=== PATIENT | female | born 1980 | race Asian ===

== ENCOUNTER 2018-09-16 10:35 | Outpatient (CLI) | payer BC | END 2018-09-16 23:59 | disposition home or self-care (01) | LOC: STAR 10:35 | PROVIDERS: ATTEND Obstetrics & Gynecology | DX: Z02.9 Encounter for administrative examinations, unspecified (principal) ==

== ENCOUNTER 2018-09-23 05:38 | Day surgery (SDC) | payer BC ==
[~2018-09-23] VITALS: Ht 162.6 cm; Wt 163.1 kg
[~2018-09-23 05:38] MED LIST: ERGO500017 PO; FLUT1AER INH; IPRA3AMP30 NEB; MONT10TA6 PO
[2018-09-23 06:45] LABS: HCG UR SG 1.022 (1.003-1.030)
[2018-09-23] MEDS ORDERED: LACTATED RINGERS 1,000 ML IV SCH (06:46)
[2018-09-23 06:47] VITALS: BP 137/87
[2018-09-23] MEDS ORDERED: SILVER NITRATE STICK TP ONE (07:11)
[2018-09-23] MEDS ORDERED: BUPIVACAINE/PF 0.25% ONE (07:11)
[2018-09-23] MEDS ORDERED: FENTANYL PF 100 MCG/2ML ONE ×2 (07:26→09:08)
[2018-09-23] MEDS ORDERED: MIDAZOLAM 1 MG/ML, 2ML ONE (07:31)
[2018-09-23] MEDS ORDERED: GLYCOPYRROLATE 0.2MG/1ML, 5ML ONE (08:00)
[2018-09-23] MEDS ORDERED: NEOSTIGMINE 1 MG/ML, 10ML ONE (08:00)
[2018-09-23] MEDS ORDERED: LIDOCAINE-MPF 2% ,5ML ONE ×2 (08:00)
[2018-09-23] MEDS ORDERED: CEFAZOLIN 1,000 MG ONE ×2 (08:00)
[2018-09-23] MEDS ORDERED: SUCCINYLCHOLINE 20 MG/ML, 10ML ONE (08:00)
[2018-09-23] MEDS ORDERED: ONDANSETRON 2MG/ML, 2ML ONE (08:00)
[2018-09-23] MEDS ORDERED: ROCURONIUM 10MG/ML,5ML ONE (08:00)
[2018-09-23] MEDS ORDERED: DEXAMETHASONE 4 MG/ML, 1ML ONE (08:00)
[2018-09-23] MEDS ORDERED: PROPOFOL 10 MG/ML, 20ML ONE (08:00)
[2018-09-23] MEDS ORDERED: hydrALAzine 20 MG/ML, 1ML IV PRN (09:00)
[2018-09-23] MEDS ORDERED: FENTANYL PF 100 MCG/2ML IV PRN (09:00)
[2018-09-23] MEDS ORDERED: LORazepam 2 MG/ML, 1ML IVPush PRN (09:00)
[2018-09-23] MEDS ORDERED: LABETALOL 5MG/ML, 20ML IV PRN (09:00)
[2018-09-23] MEDS ORDERED: HALOPERIDOL 5 MG/ML IV PRN (09:00)
[2018-09-23] MEDS ORDERED: METOPROLOL 1 MG/ML, 5ML IV PRN (09:00)
[2018-09-23] MEDS ORDERED: OXYcodone 5 MG/5 ML ORAL.SOL UDC PO PRN (09:00)
[2018-09-23] MEDS ORDERED: PROMETHAZINE 25 MG/ML, 1ML IV PRN (09:00)
[2018-09-23] MEDS ORDERED: ALBUTEROL SULFATE 2.5 MG/3 ML NPPB PRN (09:00)
[2018-09-23] MEDS ORDERED: HYDROmorphone 2 MG/ML, 1ML IVPush PRN (09:00)
[2018-09-23] MEDS ORDERED: ALBUTEROL SULFATE 2.5 MG/3 ML ONE (09:00)
[2018-09-23] MEDS ORDERED: MORPHINE SULFATE 4 MG/ML, 1ML IVPush PRN (09:00)
[2018-09-23] MEDS ORDERED: ONDANSETRON 2MG/ML, 2ML IV PRN (09:00)
[2018-09-23] MEDS ORDERED: MEPERIDINE/PF 25MG/0.5ML IVPush PRN (09:00)
[2018-09-23] MEDS ORDERED: KETOROLAC 30 MG/1 ML ONE (09:10)
[2018-09-23] MEDS ORDERED: KETOROLAC 30 MG/1 ML IV PRN (09:30)
[2018-09-23] MEDS ORDERED: OXYcodone 5 MG/5 ML ORAL.SOL UDC ONE (09:34)
== END 2018-09-23 15:20 | disposition home or self-care (01) ==
LOC: OUT 05:38
PROVIDERS: ATTEND Obstetrics & Gynecology
DX: C54.1 Malignant neoplasm of endometrium (principal); N84.0 Polyp of corpus uteri; E66.01 Morbid (severe) obesity due to excess calories; I10 Essential (primary) hypertension; J45.909 Unspecified asthma, uncomplicated; E78.5 Hyperlipidemia, unspecified; G43.909 Migraine, unspecified, not intractable, without status migrainosus
CPT/HCPCS: 58558; 81025; 88305; 94640; J0330; J0690; J1100; J1885; J2250; J2405; J2704; J2710; J3010; J7120; J7613; J3490

== ENCOUNTER 2018-10-27 09:48 | Outpatient (CLI) | payer BC | END 2018-10-27 23:59 | disposition home or self-care (01) | LOC: STAR 09:48 | PROVIDERS: ATTEND Specialist | DX: Z01.818 Encounter for other preprocedural examination (principal); C54.1 Malignant neoplasm of endometrium; Z93.9 Artificial opening status, unspecified | CPT/HCPCS: 36415; 80053; 84703; 85025; 85610; 85730; 86304 ==

== ENCOUNTER → 2020-10-19 | Outpatient (CLI) | payer OTHER ==
[~2020-10-19] MED LIST changes: +OMNIPAQUE 350 MG/ML, 150 ML BOTTLE ONE; +ONDA4TAB13 PO; +OXYC1TAB17 PO
== END | disposition home or self-care (01) ==
LOC: CFH 14:27
PROVIDERS: ATTEND Specialist
DX: C54.1 Malignant neoplasm of endometrium (principal); N84.0 Polyp of corpus uteri; M89.9 Disorder of bone, unspecified; K62.5 Hemorrhage of anus and rectum; N95.2 Postmenopausal atrophic vaginitis; M51.34 Other intervertebral disc degeneration, thoracic region; R10.30 Lower abdominal pain, unspecified; N95.8 Other specified menopausal and perimenopausal disorders; Q89.09 Congenital malformations of spleen
CPT/HCPCS: 71260; 74177; Q9967